=== PATIENT | female | born 1985 | race African-American/Black ===

== ENCOUNTER 2023-08-23 22:34 | Emergency (ER) | payer BC, SELFPAY ==
--- NOTE | ~2023-08-23 | XR_ITS ---
EXAMINATION: XR chest 2V Exam Date/Time: 08/23/2023 22:44 CDT HISTORY: cp Comparison: None. RESULT: Lines, tubes, and devices: None. Lungs and pleura: Ill-defined subsegmental opacity in the right lower lung, possibly localizing to t he right lower lobe in the lateral view. Cardiomediastinal silhouette: Stable. Other: No acute osseous or upper abdominal finding. IMPRESSION: Subsegmental right lower lung airspace disease may represent atelectasis or consolidation. Reviewed, dictated and finalized at location K. IMPRESSION: Subsegmental right lower lung airspace disease may represent atelectasis or con solidation.
--- NOTE | 2023-08-23 22:39 | ECG_ITS ---
[facility] [address] Test Date: 2023-08-23 Pat Name: Alda Wren Department: Room: Gender: F [employer]: DUSTY : 1985 Requested By: Iliana Montero Order Number: [id number] Reading MD: Qi Kuo M.D. Measurements Intervals [place] Rate: 84 P: 48 NM: 146 QRS: 27 QRSD: 84 T: 42 QT: 359 QTc: 427 Interpretive Statements SINUS RHYTHM No previous ECG available for comparison Electronically Signed On 08-24-2023 13:59:31 CDT by Qi Kuo M.D.
[2023-08-23 22:41] VITALS: BP 124/79; PULSE 84; RESP 20; TEMP 36.8; O2SAT 98
[2023-08-23 22:47] VITALS: O2SAT 100
[2023-08-23 22:48] VITALS: PULSE 86
[2023-08-23 22:49] LABS: Basophils Percent Auto 0.5 % (0.2-1.2); Eosinophils Absolute Auto 0.1 K/mm3 (0-0.3); Eosinophils Percent Auto 1.7 % (0-4.4); Hematocrit 37.9 % (37.0-47.0); Hemoglobin 13.3 g/dL (12.0-15.0); Immature Granulocyte Absolute 0.01 K/mm3 (0.00-0.031); Immature Granulocyte Percent A 0.2 % (0-0.5); Lymphocytes Absolute Auto 3.38 K/mm3 (0.9-3.2); Lymphocytes Percent Auto 51.7 % (18.3-44.2); Mean Corpuscular HGB Conc 35.1 g/dl (32-36); Mean Corpuscular Hemoglobin 33.2 pg (26-34); Mean Corpuscular Volume 94.5 fl (80-100); Monocytes Absolute Auto 0.5 K/mm3 (0.1-0.6); Monocytes Percent Auto 7.3 % (2.6-8.5); Neutrophils Absolute Auto 2.5 K/mm3 (1.3-6.7); Neutrophils Percent Auto 38.6 % (45.5-73.1); Platelet Count Result 213 k/mm3 (150-375); Red Blood Count 4.01 M/mm3 (4.2-5.4); Red Cell Distribution Width 11.8 % (11.5-14.5); White Blood Count 6.5 K/mm3 (4.5-10.0)
[2023-08-23 22:59] LABS: Prothrombin Time 13.7 Seconds (11.1-14.7)
[2023-08-23 23:00] VITALS: PULSE 80; RESP 15; O2SAT 98
[2023-08-23 23:00] LABS: Partial Thromboplastin Time 36.4 Seconds (22.3-36.8)
[2023-08-23 23:01] LABS: Alanine Aminotransferase 11 U/L (6-35); Albumin Level 4.2 g/dL (3.5-5.1); Alkaline Phosphatase 56 U/L (38-126); Anion Gap 4 mmol/L (4-12); Aspartate Amino Transferase 19 U/L (14-36); Bilirubin,Total 0.4 mg/dL (0.2-1.3); Blood Urea Nitrogen 12 mg/dL (7-17); Calcium 8.8 mg/dL (8.4-10.2); Carbon Dioxide 26 mmol/L (22-30); Chloride 107 mmol/L (98-107); Estimated CRCL calculation 78 ml/min; Estimated Glomerular Filt Rate > 60; Glucose 110 mg/dL (65-110); Lipase 74 U/L (23-300); Potassium 4.1 mmol/L (3.4-5.0); Sodium 137 mmol/L (137-145)
--- NOTE | 2023-08-23 23:08 | PC.NURSE ---
care and report given to NICKY Jessica. all questions answered.
[2023-08-23 23:12] LABS: Troponin I < 0.012 ng/mL (0.000-0.034)
[2023-08-24 00:35] VITALS: BP 114/77; PULSE 75; RESP 15; O2SAT 99
--- NOTE | 2023-08-24 00:47 | ED.CHESTPAIN ---
HPI - Chest Pain General Chief Complaint: Chest Pain Stated Complaint: chest pain Time Seen by Provider: 08/23/23 23:44 History of Present Illness HPI narrative: Patient is a 37-year-old female who presents to the emergency department this evening complaining of chest pain that has been ongoing for over a week. Patient states that today before she came to the emergency department she felt as though her legs were very stiff and she could not get them to relax. While in the emergency department, patient's symptoms have completely resolved. Patient is denying any leg stiffness. Patient states that she did have an episode where her left of her neck was also states that since then symptoms have resolved. Patient denies any cardiovascular history and states that her family doctor recently increased her blood pressure medication dose. Patient denies any URI symptoms including cough, shortness of breath or fevers. No additional symptoms or concerns at this time. Related Data Home Medications Medication Instructions Recorded Confirmed labetalol 100 mg tablet 100 mg PO Q12H 08/23/23 lisinopril 30 mg tablet 30 mg PO DAILY 08/23/23 Allergies Allergy/AdvReac Type Severity Reaction Status Date / Time No Known Allergies Allergy Verified 08/23/23 22:40 Review of Systems Review of Systems: All systems are reviewed and are negative unless stated otherwise in the HPI. Exam Narrative: General: Alert, awake, afebrile, in no acute distress. HEENT: PERRL, no rhinorrhea, no post nasal drip, oropharynx clear. Cardiovascular: Regular rate and rhythm, no murmurs, rubs or gallops, no peripheral edema. Respiratory: Clear to auscultation bilaterally, no tachypnea, no wheezing, no rhonchi, no rubs, no respiratory distress. Abdomen: Soft, nontender, nondistended, no rebound, no guarding, no peritoneal signs. Musculoskeletal: No joint swelling or deformity, normal muscle tone. Skin: No rashes or petechia, no signs of infection. Neurological: Alert and oriented to person, place, and time. Follows all commands. No focal deficits, speech is clear and fluent. Course Vital Signs Vital signs: Vital Signs Temperature 98.3 F 08/23/23 22:41 Pulse Rate 84 08/23/23 22:41 Respiratory Rate 20 08/23/23 22:41 Blood Pressure 124/79 08/23/23 22:41 Pulse Oximetry 98 08/23/23 22:41 Temperature 98.3 F 08/23/23 22:41 Pulse Rate 75 08/24/23 00:35 Respiratory Rate 15 08/24/23 00:35 Blood Pressure 114/77 08/24/23 00:35 Pulse Oximetry 99 08/24/23 00:35 Oxygen Delivery Room Air 08/23/23 22:47 MDM - Chest Pain MDM Narrative Medical decision making narrative: The patient was evaluated by myself in the emergency department. History is obtained from patient who is an independent historian and physical exam was performed. External medical records were reviewed at this time. IV was established and pertinent tests were ordered. EKG was obtained which revealed sinus rhythm at a rate of 84 beats per minute. No ST changes, T wave inversions or evidence of acute ischemia. EKG was independently interpreted by me and is currently pending official cardiology read. Laboratory results obtained revealing no acute process. Imaging studies obtained included CXR which was independently interpreted by me revealing no acute cardiopulmonary process, which is pending final radiology interpretation. Differential diagnosis considerations include acute anxiety reaction, infectious process such as pneumonia and acute coronary syndrome although unlikely giving patient's low heart score of 1. Patient was informed that her chest pain is likely due to stress reaction and patient did admit that she has been under a lot of stress with lately. Comorbidities impacting this visit include history of hypertension. I have evaluated and discussed social determinants of health with the patient that could potentially impact subsequent diagnosi
== END 2023-08-24 00:56 | disposition home or self-care (01) ==
PROVIDERS: Emergency Provider Emergency Medicine
DX: R07.89 Other chest pain (principal); I10 Essential (primary) hypertension; Z79.899 Other long term (current) drug therapy
CPT/HCPCS: 36415; 71046; 80053; 83690; 84484; 85025; 85610; 85730; 93005; 99284